=== PATIENT | female | born 1980 | race Two or more races ===

== ENCOUNTER 2020-01-04 19:42 | Emergency (ER) | payer MEDICAID ==
[~2020-01-04] VITALS: Ht 177.8 cm; Wt 127.3 kg
[2020-01-04] MEDS ORDERED: IPRA4AER IH (19:57)
[2020-01-04 21:30] VITALS: BP 129/74
== END 2020-01-04 22:04 | disposition home or self-care (01) ==
LOC: EMS 19:50
DX: S46.912A Strain of unspecified muscle, fascia and tendon at shoulder and upper arm level, left arm, initial encounter (principal); J45.909 Unspecified asthma, uncomplicated; Z88.1 Allergy status to other antibiotic agents; Z88.6 Allergy status to analgesic agent; X58.XXXA Exposure to other specified factors, initial encounter; Y93.89 Activity, other specified; Y92.89 Other specified places as the place of occurrence of the external cause; Y99.8 Other external cause status